=== PATIENT | female | born 1970 | race Caucasian/White ===

== ENCOUNTER → 2017-11-20 | Outpatient (CLI) | payer BC ==
[~2017-11-20] MED LIST: PERCOCET 325 MG1 TAB PO
== END | disposition home or self-care (01) ==
LOC: LAB 16:59
DX: R19.7 Diarrhea, unspecified (principal)

== ENCOUNTER → 2018-07-21 | Outpatient (CLI) | payer BC | END | disposition home or self-care (01) | LOC: RAD 08:40 | DX: M25.572 Pain in left ankle and joints of left foot (principal); M25.472 Effusion, left ankle ==

== ENCOUNTER 2019-12-11 09:52 | Emergency (ER) | payer OTHER ==
[~2019-12-11] VITALS: Ht 162.5 cm; Wt 60.3 kg
[2019-12-11] MEDS ORDERED: NORCO 10-325 T1 EACH PO (12:57)
== END 2019-12-11 13:09 | disposition home or self-care (01) ==
LOC: ED 09:52
DX: S52.501A Unspecified fracture of the lower end of right radius, initial encounter for closed fracture (principal); S52.601A Unspecified fracture of lower end of right ulna, initial encounter for closed fracture; S22.31XA Fracture of one rib, right side, initial encounter for closed fracture; S61.412A Laceration without foreign body of left hand, initial encounter; S80.02XA Contusion of left knee, initial encounter; M25.521 Pain in right elbow; F17.200 Nicotine dependence, unspecified, uncomplicated; Z79.899 Other long term (current) drug therapy; W10.9XXA Fall (on) (from) unspecified stairs and steps, initial encounter; Y93.89 Activity, other specified; Y92.098 Other place in other non-institutional residence as the place of occurrence of the external cause; Y99.8 Other external cause status

== ENCOUNTER 2020-02-21 00:02 | Emergency (ER) | payer OTHER ==
[~2020-02-21] VITALS: Ht 162.5 cm; Wt 59.0 kg
[~2020-02-21 00:02] MED LIST changes: +NORCO 10-325 T1 EACH PO
[2020-02-21] MEDS ORDERED: NORCO 5-325 TA1 EACH PO ×3 (03:14→12:09)
== END 2020-02-21 03:15 | disposition home or self-care (01) ==
LOC: ED 00:02
DX: S42.201A Unspecified fracture of upper end of right humerus, initial encounter for closed fracture (principal); S92.001A Unspecified fracture of right calcaneus, initial encounter for closed fracture; F17.200 Nicotine dependence, unspecified, uncomplicated; Z76.0 Encounter for issue of repeat prescription; Z79.899 Other long term (current) drug therapy; X58.XXXA Exposure to other specified factors, initial encounter; Y93.89 Activity, other specified; Y92.89 Other specified places as the place of occurrence of the external cause; Y99.8 Other external cause status

== ENCOUNTER 2020-08-06 16:50 | Emergency (ER) | payer SELFPAY ==
[~2020-08-06 16:50] MED LIST changes: +NORCO 5-325 TA1 EACH PO
[2020-08-06 17:14] LABS: EOS # 0.1 10*3/uL (0.0-0.4); EOS % 0.5 % (1.0-4.0); LYMPH % 21.6 % (27.0-41.0); MEAN CELL VOLUME 120.5 fl (81.0-99.0); MEAN CORPUSCULAR HGB 37.6 pg (27.0-31.0); MEAN CORPUSCULAR HGB CONC 31.2 g/dl (33.0-37.0); MEAN PLATELET VOLUME 11.5 fl (9.6-12.3); MONO # 2.5 10*3/uL (0.1-1.0); NEUT # 17.8 10*3/uL (2.3-7.9); NUCLEATED RED BLOOD CELL 0.2 10*3/uL (0.0-0.0); NUCLEATED RED BLOOD CELL 0.6 % (0.0-0.0); PLATELET COUNT AUTOMATED 177 10*3/uL (130-400); RED BLOOD COUNT 1.17 10*6/uL (4.10-5.10); RED CELL DISTRI WIDTH 16.2 % (0-14.5); WHITE BLOOD COUNT 27.8 10*3/uL (4.8-10.8)
[2020-08-06 17:19] LABS: HEMATOCRIT 14.1 % (37.0-47.0)
[2020-08-06 17:27] LABS: ALBUMIN 1.1 gm/dl (3.1-4.5); CREATININE 2.19 mg/dL (0.55-1.02); POTASSIUM 3.1 mmol/L (3.5-5.1); TOTAL PROTEIN 3.9 gm/dL (6.4-8.2)
[2020-08-06 17:57] LABS: ACT PARTIAL THROMBO TIME 47.6 SECONDS (20.0-32.1); INTERNATIONAL NORM RATIO 1.5 (2.0-3.5)
[2020-08-06 18:01] LABS: TOTAL CELLS COUNTED 100 #CELLS
[2020-08-06 18:07] LABS: STOMATOCYTE FEW
[2020-08-06 18:09] LABS: PLATELET SUFFICIENCY NORMAL (NORMAL)
== END 2020-08-06 21:40 ==
LOC: ED 16:50
PROVIDERS: Emergency Medicine
DX: K62.5 Hemorrhage of anus and rectum (principal); Z79.899 Other long term (current) drug therapy